=== PATIENT | male | born 1990 | race Hispanic/Latino ===

== ENCOUNTER → 2025-07-30 | Outpatient (REF) | payer OTHER ==
[~2025-07-30] MED LIST: IOPAMIDOL 370 MG/ML 100 ML INFUS..BTL INJ ONE; METOPROLOL TARTRATE 25 MG TAB ONE; METOPROLOL TARTRATE INJ 1 MG/ML VIAL ONE; NITROGLYCERIN 0.4 MG SUBL ONE; SODIUM CHLORIDE 0.9% 100 ML ONE; SODIUM CHLORIDE 0.9% 500ML 0 ML ONE; SODIUM CHLORIDE 0.9% 500ML 500 ML ONE
== END ==
LOC: CT 09:12
PROVIDERS: ATTEND Internal Medicine Cardiovascular Disease
DX: I50.22 Chronic systolic (congestive) heart failure (principal)
CPT/HCPCS: 75574; 75580; J7040; J7050; Q9967